=== PATIENT | male | born 1985 | race Caucasian/White ===

== ENCOUNTER 2018-12-26 11:25 | Emergency (ER) | payer MEDICAID ==
--- NOTE | 2018-12-26 13:09 | ED Physician Chart ---
ED Chief Complaint/HPI - Patient Information Date Seen:: 12/26/18 Time Seen:: 12:00 Chief Complaint:: known toe fracture wants to have time off that has acquired History of Present Illness:: 2weeks needs time off so wont lose time benefit Allergies:: Allergies Allergy/AdvReac Type Severity Reaction Status Date / Time No Known Allergies Allergy Verified 12/10/18 09:13 Vitals:: Vital Signs - 8 hr 12/26/18 12/26/18 11:33 11:47 Temp 98.3 F 98.2 F HR 93 96 RR 18 17 BP 153/87 151/54 O2 Sat % 95 97 Review:: Nurse's Note Reviewed ED Review of Systems - Review of Systems General/Constitutional: No fever Musculoskeletal: Bone or joint pain ED Past Medical History - Past Medical History Past Medical History: No significant medical hx Social History: No Drug Use Family Medical History - Family Member Sister History Unknown: Yes ED Physical Exam - Physical Examination General/Constitutional: Well-developed, well-nourished, Alert, No distress, Non- toxic appearing, Ambulatory Head: Atraumatic Eyes: Lids, conjuctiva normal Skin: Nl inspection ENMT: External ears, nose nl Neck: Nontender Respiratory: Nl effort/Exclusion Cardio Vascular: RRR GI: No tenderness/rebounding/guarding : No CVA tenderness Extremities: No tenderness or effusion Neuro/Psych: Alert/oriented ED Assessment - Assessment General Assessment: post fracture pain social work issues non jitendra tape compliance ED Septic Shock - . Is Septic Shock (SBP<90, OR Lactate>4 mmol\L) present?: No - <6hrs of presentation: Vital Signs: Vital Signs - 8 hr 12/26/18 12/26/18 11:33 11:47 Temp 98.3 F 98.2 F HR 93 96 RR 18 17 BP 153/87 151/54 O2 Sat % 95 97 ED Reassessment (Disposition) - Reassessment Reassessment Condition:: Improved (jitendra tape applied note for work)
== END 2018-12-26 12:03 | disposition home or self-care (01) ==
LOC: ER 11:25
DX: M79.676 Pain in unspecified toe(s) (principal)
CPT/HCPCS: Z7502